=== PATIENT | female | born 1955 | race Two or more races ===

== ENCOUNTER 2018-12-16 19:44 | Emergency (ER) | payer MEDICAID, OTHER ==
[~2018-12-16] VITALS: Ht 162.6 cm; Wt 72.6 kg
[~2018-12-16 19:44] MED LIST: AZITHROMYCIN250 MG ORAL; BENADRYL25 MG ORAL; CEPHALEXIN500 MG ORAL; IBUPROFEN600 M1 PO; NKM; NORCO 5-325 TA1 EACH ORAL
[2018-12-16 20:07] VITALS: BP 155/110
--- NOTE | 2018-12-16 20:10 | NUR ---
ED Nurse Note: Pt states L arm and back pain for 2 days, pain 10/10. Pt went to see her MD and got Motrin 800mg meds. Pt states she has no chest pain or SOB. Pt is AO x 4times, VSS, on room air no distress. J LUIS seen Pt at bedside.
--- NOTE | 2018-12-16 20:12 | Emergency Room Report ---
History of Present Illness General Chief Complaint: Pain Source: Patient Present Illness HPI 63-year-old female presenting with left arm pain. Says that she's had severe pain since Friday. Her primary care doctor gave her Motrin however it's not helping. She has more pain when she moves her arm. Also feels that she has left neck pain. No actual accident. No actual chest pain or shortness of breath. The pain is worse with any kind of movement. Does not get worse with walking. No shortness of breath no palpitations. No numbness no tingling. Says that her arm feels warm not cold Allergies: Coded Allergies: No Known Allergies (Unverified , 03/19/14) Patient History Past Medical History: see triage record Past Surgical History: none Pertinent Family History: none Now: No Reviewed Nursing Documentation: PMH: Agreed; PSxH: Agreed Nursing Documentation-PMH Hx Hypertension: Yes Review of Systems All Other Systems: negative except mentioned in HPI Physical Exam Vital Signs Date Time Temp Pulse Resp B/P (MAP) Pulse Ox O2 Delivery O2 Flow Rate FiO2 12/16/18 19:51 98.1 76 18 170/112 98 Room Air Sp02 EP Interpretation: reviewed, normal General Appearance: alert, GCS 15, non-toxic, moderate distress Head: normocephalic, atraumatic Eyes: bilateral eye normal inspection, bilateral eye PERRL, bilateral eye EOMI ENT: normal ENT inspection, normal pharynx, normal voice, moist mucus membranes Neck: normal inspection, full range of motion, supple Respiratory: normal inspection, lungs clear, normal breath sounds, no respiratory distress, no retraction, no wheezing, speaking full sentences, chest symmetrical Cardiovascular #1: normal inspection, regular rate, rhythm, no edema, normal capillary refill Cardiovascular #2: 2+ radial (R), 2+ radial (L) Gastrointestinal: normal inspection, non tender, soft, non-distended, no guarding Musculoskeletal: other - Tenderness along left paraspinal and deltoid region, also tenderness to humerus. It is warm. Full range of motion. No erythema Neurologic: normal inspection, alert, oriented x3, responsive, motor strength/ tone normal, sensory intact, normal gait, speech normal Psychiatric: normal inspection, judgement/insight normal, memory normal Skin: normal inspection, normal color, no rash, warm/dry, well hydrated, normal turgor Medical Decision Making Diagnostic Impression: Primary Impression: Shoulder pain ER Course 63-year-old female with left neck pain and left shoulder pain, has been that way for one week DDX: History and physical exam directed more towards musculoskeletal pain but we'll obtain an EKG Plan: Pain medication EKG ER course: Patient has remained stable during ED stay. Given 1 tab of [place] Will be going home with Disposition: Patient is to be discharged to home. Discharge with PCP follow-up. If any worsening symptoms told to come back right back to the emergency room Please note that this Emergency Department Report was dictated using [employer] cooking operator technology software, occasionally this can lead to erroneous entry secondary to interpretation by the dictation equipment EKG Diagnostic Results EP Interpretation: Yes Rate: normal Rhythm: NSR ST Segments: No acute changes ASA given to patient: No Last Vital Signs Date Time Temp Pulse Resp B/P (MAP) Pulse Ox O2 Delivery O2 Flow Rate FiO2 12/16/18 19:51 98.1 76 18 170/112 98 Room Air Disposition: HOME, SELF-CARE Condition: Stable Sonny Ford M.D. Dec 16, 2018 20:12
[2018-12-16] MEDS ORDERED: Norco 5mg/325mg tab ORAL ONE (20:15)
[2018-12-16] MEDS ORDERED: NORCO 5-325 TA1 EACH ORAL (20:31)
[2018-12-16 20:43] VITALS: BP 150/100
[2018-12-16 20:44] VITALS: BP 150/100
[2018-12-16] MEDS ORDERED: Ketorolac 30mg Inj IM ONE (20:45)
--- NOTE | 2018-12-16 20:55 | NUR ---
ED Nurse Note: Pt cleared by Health Care Provider for discharge. DC instructions/prescriptions given and explained to pt and verbalized understanding of teachings. All medical devices such as ID band removed. Pt AAO x4, ambulatory and left with all personal belongings. pt is instructed to follow up with primary MD as soon as possible. pt is insturcted to return and seek medical attention if reoccurance of symptoms. pt has left with all DC notes and has been able to teach back all instructions.
--- NOTE | 2018-12-19 16:15 | Cardiology Report ---
APPROVED REPORT EKG Measurement Heart [id number] Normal sinus rhythm Possible septal infarct, age undetermined Abnormal ECG
== END 2018-12-16 20:45 | disposition home or self-care (01) ==
LOC: EMR 20:25
DX: M25.512 Pain in left shoulder (principal); I10 Essential (primary) hypertension
CPT/HCPCS: 93005; 96372; 99283; J1885